=== PATIENT | male | born 1985 | race Caucasian/White ===

== ENCOUNTER 2017-04-23 23:57 | Emergency (ER) | payer SELFPAY ==
[~2017-04-23] VITALS: Ht 170.2 cm; Wt 57.0 kg
[~2017-04-23 23:57] MED LIST: ALBU8.5H5 IH; BENZ100C70 PO; PRED20TA PO; PROM6.25 PO
[2017-04-24 00:01] VITALS: Ht 170.2 cm; Wt 57.0 kg
[2017-04-24] MEDS ORDERED: IBUP-1542 PO (00:33)
--- NOTE | 2017-04-24 00:46 | ERD ---
ER Documentation Chief Complaint Date/Time DATE: 04/24/17 TIME: 00:40 Chief Complaint left jaw pain x 2 weeks HPI This is a 31 year old male with history of anxiety, ADHD, PTSD presenting to the emergency department complaining of intermittent achy 7/10 left jaw pain for two- three weeks. He denies fevers, trauma. He states that he feels as if it gets dislocated, he states it is hard to describe the sensation. He denies taking any pain medications. He is on Adderall for ADHD. ROS All systems reviewed and are negative except as per history of present illness. Medications Home Meds Active Scripts Ibuprofen* (Ibuprofen*) 600 Mg Tablet, 600 MG PO Q6H Y for PAIN AND OR ELEVATED TEMP, #30 TAB Prov:OMKAR COLE PA-C 04/24/17 Albuterol Sulfate* (Albuterol Sulfate* HFA) 8.5 Gm Hfa.aer.ad, 2 PUFF IH Q4H Y for WHEEZING AND SOB, #1 EA Prov:DESHAWN WEBB PA-C 12/21/14 Promethazine w/Codeine* (Phenergan w/Codeine* Syrup) 5 Ml Syrup, 5 ML PO Q4H Y for COUGH, #100 ML Prov:DESHAWN WEBB PA-C 12/21/14 Benzonatate* (Tessalon Perle*) 100 Mg Capsule, 100 MG PO Q8H Y for COUGH, #20 CAP Prov:DESHAWN WEBB PA-C 12/21/14 Prednisone* (Prednisone*) 20 Mg Tab, 40 MG PO DAILY for 4 Days, TAB Prov:DESHAWN WEBB PA-C 12/21/14 Allergies Allergies: Coded Allergies: No Known Allergy (Unverified , 12/20/14) PMhx/Soc Medical and Surgical Hx: pt denies Surgical Hx Hx Alcohol Use: No Hx Substance Use: No Hx Tobacco Use: No Smoking Status: Never smoker Physical Exam Vitals Vital Signs Date Time Temp Pulse Resp B/P Pulse Ox O2 Delivery O2 Flow Rate FiO2 04/24/17 00:01 97.8 86 20 122/85 97 Physical Exam Const: No acute distress Head: Atraumatic Eyes: Normal Conjunctiva ENT: Normal External Ears, Nose patient is able to open and close mouth easily mild crepitus on the left TMJ Neck: Full range of motion..~ No meningismus. Resp: Clear to auscultation bilaterally Cardio: Regular rate and rhythm, no murmurs Abd: Soft, non tender, non distended. 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 Patient appears to be stressed and grinding at night. He is suitable to be discharged home to follow-up with dentist for further evaluation, management and possible nightguard. There was no evidence of dislocation, infection on examination. Patient was given prescription for ibuprofen. Stable to be discharged home Departure Diagnosis: Primary Impression: Jaw pain Condition: Stable Patient Instructions: Helping Your Temporomandibular Joint (TMJ) Heal, Tmj Syndrome Referrals: NO PRIMARY,CARE PHYSICIAN (PCP) COMMUNITY CLINICS YOU HAVE RECEIVED A MEDICAL SCREENING EXAM AND THE RESULTS INDICATE THAT YOU DO NOT HAVE A CONDITION THAT REQUIRES URGENT TREATMENT IN THE EMERGENCY DEPARTMENT. FURTHER EVALUATION AND TREATMENT OF YOUR CONDITION CAN WAIT UNTIL YOU ARE SEEN IN YOUR DOCTORS OFFICE WITHIN THE NEXT 1-2 DAYS. IT IS YOUR RESPONSIBILITY TO MAKE AN APPOINTMENT FOR FOLOW-UP CARE. IF YOU HAVE A PRIMARY DOCTOR --you should call your primary doctor and schedule an appointment IF YOU DO NOT HAVE A PRIMARY DOCTOR YOU CAN CALL OUR PHYSICIAN REFERRAL HOTLINE AT IF YOU CAN NOT AFFORD TO SEE A PHYSICIAN YOU CAN CHOSE FROM THE FOLLOWING [facility] [id number] [facility] [address] [facility] [address] [facility] [address] [facility]. [facility] [address] [facility]. [facility]. [address] Additional Instructions: FOLLOW UP WITH YOUR PRIMARY CARE PHYSICIAN TOMORROW.Return to this facility if you are not improving as expected. Take all medicines as directed. Return to this facility if you are not improving as expected. OMKAR COLE PA-C Apr 24, 2017 00:46
== END 2017-04-24 01:22 | disposition home or self-care (01) ==
LOC: FTE 23:57
DX: R68.84 Jaw pain (principal)
CPT/HCPCS: 99283